=== PATIENT | male | born 1980 | race Caucasian/White ===

== ENCOUNTER 2019-09-01 23:14 | Emergency (ER) | payer BC ==
[~2019-09-01] VITALS: Ht 182.9 cm; Wt 125.2 kg
[2019-09-01 23:22] VITALS: Ht 182.9 cm; Wt 125.2 kg
[2019-09-02 03:28] VITALS: BP 146/104
== END 2019-09-02 03:28 | disposition home or self-care (01) ==
LOC: ED 23:14
DX: S06.0X1A Concussion with loss of consciousness of 30 minutes or less, initial encounter (principal); S02.2XXA Fracture of nasal bones, initial encounter for closed fracture; Y04.8XXA Assault by other bodily force, initial encounter; Y93.89 Activity, other specified; Y92.89 Other specified places as the place of occurrence of the external cause; Y99.8 Other external cause status
CPT/HCPCS: G0480; J2270; Q0162